=== PATIENT | female | born 1995 | race Caucasian/White ===

== ENCOUNTER 2017-11-20 11:30 | Emergency (ER) | payer OTHER ==
--- NOTE | 2017-11-20 11:44 | UC ---
Complaint Female HPI - HPI Summary HPI Summary: 22 y/o female presents to the urgent care c/o burning and frequency on urination since 11/08/2017. Pt reports she has Hx of recurrent UTI. At the begining of symptoms she took 1 tab of an old ABX that was Rx previously. She can't recall the name. Pt states suprapubic pain and pressure, 04/22. LMP:2016, taken OCP. Pt denies back pain, vaginal discharge, fever, chest pain, N/V/ D, abdominal pain, Hx of STD's - History Of Current Complaint Stated Complaint: URINARY COMPLAINT Time Seen by Provider: 11/20/17 11:35 Hx Obtained From: Patient Hx Last Menstrual Period: 10/30/2017 ?: No Onset/Duration: Gradual Onset, Lasting Weeks - more than 1 week, Still Present, Worse Since - 2 days ago Timing: Intermittent Severity Initially: Moderate Severity Currently: Moderate Pain Intensity: 6 Pain Scale Used: 0-10 Numeric Character: Burning Aggravating Factor(s): Urination Alleviating Factor(s): Nothing Associated Signs And Symptoms: Negative: Fever, Back Pain, Vaginal Discharge, Genital Swelling - Risk Factors Ectopic Risk Factor: Negative Ovarian Torsion Risk Factor: Negative - Allergies/Home Medications Allergies/Adverse Reactions: Allergies Allergy/AdvReac Type Severity Reaction Status Date / Time red dye #9 Allergy Swelling Uncoded 11/20/17 12:03 Of Face,Lips,& Throat PMH/Surg Hx/FS Hx/Imm Hx Previously Healthy: Yes Endocrine History: Hypothyroidism - as a child, but lately her thyroid levels are normal as per PT Other Endocrine History: PCOS Respiratory History: Asthma Other Psychological History: ADHD - Surgical History Surgical History: Yes Surgery Procedure, Year, and Place: gall bladder. right ankle ORIF - Family History Known Family History: Positive: Hypertension, Diabetes - Social History Occupation: Employed Full-time Lives: Alone Alcohol Use: Rare Substance Use Type: None Smoking Status (MU): Never Smoked Tobacco Review of Systems Constitutional: Negative Skin: Negative Eyes: Negative ENT: Negative Respiratory: Negative Cardiovascular: Negative Gastrointestinal: Negative Genitourinary: Dysuria, Frequency, Urgency, Other - suprapubic pressure and pain Motor: Negative Neurovascular: Negative Musculoskeletal: Negative Neurological: Negative Psychological: Negative Is Patient Immunocompromised?: No All Other Systems Reviewed And Are Negative: Yes Physical Exam Triage Information Reviewed: Yes - Additional Comments VITAL SIGNS: Reviewed. GENERAL: Patient is a well developed and nourished female who is sitting comfortable in the examining table. Patient is not in any acute respiratory distress. HEAD AND FACE: No signs of trauma. No ecchymosis, hematomas or skull depressions. No sinus tenderness. EYES: PERRLA, EOMI x 2, No injected conjunctiva, clear watery eyes, no nystagmus. No photophobia. EARS: Hearing grossly intact. Ear canals and tympanic membranes are within normal limits. MOUTH: pharynx with no erythema, no exudates,no palatal petechiae. no B/L tonsillar enlargement Uvula in midline. NECK: Supple, trachea is midline, no lymphadenopathy, no JVD, no carotid bruit, no c-spine tenderness, neck with full ROM. CHEST: Symmetric, no tenderness at palpation LUNGS: Clear to auscultation bilaterally. No wheezing or crackles. CVS: Regular rate and rhythm, S1 and S2 present, no murmurs or gallops appreciated. ABDOMEN: Soft, non-tender. No signs of distention. No rebound no guarding, and no masses palpated. Bowel sounds are normal. BACK:no scoliosis or lesions, non tender to palpation, No B/L CVA tenderness EXTREMITIES: FROM in all major joints, no edema, no cyanosis or clubbing. NEURO: Alert and oriented x 3. No acute neurological deficits. Speech is normal and follows commands. SKIN: Dry and warm Complaint Female Dx - Course Course Of Treatment: 22 y/o female presents to the urgent care c/o burning and frequency on urination since 11/08/2017. Pt reports she has Hx of recurrent UTI. At the begining of symptoms she took 1 tab of an old ABX that was Rx previously. She can't recall the name. Pt states suprapubic pain and pressure, . LMP:10/30/2017, taken OCP. Pt denies back pain, vaginal discharge, fever, chest pain, N/V/D, abdominal pain, Hx of STD's, no hematuria. Hx obtained. PE: WNL. UA and test ordered. UA results: ketone+, uribilirubin+. Pt Rx Pyridium 100mg PO TID x 2 days to alleviate Dysuria. Advised to increase fluid intake. Urine sent for culture to r/o any abnormality Pt will be notified for further treatment. Pt advised If symptoms do not improve to return to the urgent care or f/u with PCP. Pt understood and agreed. Left the clinic ambulating. - Differential Dx/Diagnosis Differential Diagnosis/HQI/PQRI: Cervicitis, Pelvic Inflammatory Disease, Renal Colic, Sexually Transmitted Disease, Ureteral Stone, Urinary Tract Infection Provider Diagnoses: 1- Dysuria Discharge - Discharge Plan Condition: Stable Disposition: HOME Prescriptions: Phenazopyridine TAB* [Pyridium 100 mg TAB*] 100 mg PO TID #6 tab Patient Education Materials: Dysuria (ED) Referrals: SANDY Vora [Medical Doctor] - 2 Days Additional Instructions: 1- Please take Pyridium 100 mg PO TID x 2 days to alleviate urinary symptoms. Increase increase fluid intake. drink cranberry juice. 2-Urine sent for culture, if any abnormality, you will be notified for further treatment. 3-If symptoms do not improve please return to the urgent care or f/u with your PCP for further management
[2017-11-20 12:03] VITALS: BP 124/77
== END 2017-11-20 13:08 | disposition home or self-care (01) ==
LOC: UCCORT 11:30
DX: R30.0 Dysuria (principal); Z87.440 Personal history of urinary (tract) infections; J45.909 Unspecified asthma, uncomplicated; F90.9 Attention-deficit hyperactivity disorder, unspecified type; Z90.49 Acquired absence of other specified parts of digestive tract
CPT/HCPCS: 81003; 87086; 99212; G0463

== ENCOUNTER 2019-02-23 14:44 | Emergency (ER) | payer OTHER ==
[2019-02-23 14:58] VITALS: BP 138/77
--- NOTE | 2019-02-23 15:07 | UC ---
Respiratory Complaint HPI - HPI Summary HPI Summary: C/O cough with sore throat x 3 days. Wheezing at night. \ Also c/o low back pain x 2-3 weeks. No pain now. Was worse this morning at work standing. Better with sitting. - History of Current Complaint Chief Complaint: UCRespiratory Stated Complaint: COUGH/SORE THROAT Time Seen by Provider: 02/23/19 14:51 Hx Obtained From: Patient Hx Last Menstrual Period: 02/18/19 ?: No Onset/Duration: Sudden Onset, Lasting Days, Still Present Timing: Constant Severity Initially: Moderate Severity Currently: Moderate Pain Intensity: 0 Character: Cough: Nonproductive Alleviating Factors: Bronchodilator Associated Signs And Symptoms: Positive: Wheezing, URI, Nasal Congestion, Hoarseness. Negative: Sinus Discomfort Related History: Seasonal Allergies - Allergies/Home Medications Allergies/Adverse Reactions: Allergies Allergy/AdvReac Type Severity Reaction Status Date / Time red dye #9 Allergy Swelling Uncoded 02/23/19 14:58 Of Face,Lips,& Throat PMH/Surg Hx/FS Hx/Imm Hx Endocrine History: Hypothyroidism Respiratory History: Asthma Psychological History: Anxiety, Depression Other Psychological History: ADD - Surgical History Surgical History: Yes Surgery Procedure, Year, and Place: gall bladder. right ankle ORIF - Family History Known Family History: Positive: Hypertension, Diabetes - Social History Occupation: Employed Full-time Lives: With Family - with boyfriend Alcohol Use: Rare Substance Use Type: None Substance Use Comment - Amount & Last Used: 11/17/17 Smoking Status (MU): Never Smoked Tobacco Review of Systems All Other Systems Reviewed And Are Negative: Yes ENT: Positive: Sore Throat, Nasal Discharge Respiratory: Positive: Shortness Of Breath, Cough Is Patient Immunocompromised?: No Physical Exam Triage Information Reviewed: Yes Appearance: No Pain Distress, Ill-Appearing, Obese Vital Signs: Initial Vital Signs Temp 98.8 F 02/23/19 14:54 Pulse 97 02/23/19 14:54 Resp 16 02/23/19 14:54 BP 138/77 02/23/19 14:54 Pulse Ox 100 02/23/19 14:54 Vital Signs Reviewed: Yes ENT: Positive: Pharynx normal, Nasal congestion, TMs normal Neck exam: Normal Respiratory: Positive: Lungs clear, Wheezing - expiratory wheezing with coughing Cardiovascular Exam: Normal Musculoskeletal: Positive: Other: - Tenderness around the SI joints right > left. Neurological Exam: Normal - DTR's normal LE and normal sensation to light touch Psychological Exam: Normal Skin Exam: Normal Respiratory Course/Dx - Differential Dx/Diagnosis Differential Diagnosis/HQI/PQRI: Asthma, Lower Resp Infection, Sinusitis Provider Diagnosis: Upper respiratory infection with cough and congestion, Asthma with acute exacerbation, Bilateral sacroiliitis Discharge - Sign-Out/Discharge Documenting (check all that apply): Patient Departure All imaging exams completed and their final reports reviewed: No Studies - Discharge Plan Condition: Stable Disposition: HOME Prescriptions: predniSONE TAB* [Deltasone 20 MG TAB*] 60 mg PO DAILY #18 tab Patient Education Materials: Upper Respiratory Infection (ED), Wheezing (ED), Sacroiliitis (ED), Prednisone (By mouth) Referrals: SANDY Vora [Primary Care Provider] - Additional Instructions: Please see a chiropractor - Billing Disposition and Condition Condition: STABLE Disposition: Home
== END 2019-02-23 15:24 | disposition home or self-care (01) ==
LOC: UCCORT 14:44
DX: J06.9 Acute upper respiratory infection, unspecified (principal); J45.901 Unspecified asthma with (acute) exacerbation; M46.1 Sacroiliitis, not elsewhere classified; E03.9 Hypothyroidism, unspecified; F41.8 Other specified anxiety disorders; F98.8 Other specified behavioral and emotional disorders with onset usually occurring in childhood and adolescence
CPT/HCPCS: 99212; G0463